=== PATIENT | female | born 1990 ===

== ENCOUNTER 2016-10-17 13:29 | Emergency (ER) | payer MEDICAID ==
[2016-10-17 13:37] VITALS: BMI 28.7
[2016-10-17 13:40] VITALS: TEMP 98.7
--- NOTE | 2016-10-17 14:28 | ED PDOC ---
Arrival/HPI - General Historian: Patient - General Chief Complaint: Abnormal Skin Integrity Time Seen by Provider: 10/17/16 13:56 - History of Present Illness Narrative History of Present Illness (Text): 10/17/16 14:24 This is a 26 year old female with no significant PMHx who presents for evaluation of bug bites. Patient states that she has been experiencing these bug bites for about 1 week now. Patient states that the bugs came from the carpets at work. Patient states that the bugs will latch onto any exposed area of skin. Patient states that the bites have been unchanged from the previous week. Patient complains of intermittent pruritis. Patient states that the lesions are primarily on her legs and feet. Patient states that she also has a lesion on her right shoulder and some on her back. Lesions are not painful. Patient denies all other acute complaints. PMD: Dr. Airam Phan ([place] [facility]) Past Medical History - Provider Review Nursing Documentation Reviewed: Yes - Infectious Disease Hx of Infectious Diseases: None - Psychiatric Hx Depression: No Hx Emotional Abuse: No Hx Physical Abuse: No Hx Substance Use: No - Anesthesia Hx Anesthesia: No Hx Anesthesia Reactions: No Hx Malignant Hyperthermia: No - Suicidal Assessment Feels Threatened In Home Enviroment: No Family/Social History - Physician Review Nursing Documentation Reviewed: Yes Family/Social History: No Known Family HX Smoking Status: Never Smoked Hx Alcohol Use: No Hx Substance Use: No Allergies/Home Meds Allergies/Adverse Reactions: Allergies No Known Allergies Allergy (Verified 11/20/11 14:31) Review of Systems - Review of Systems Constitutional: Normal. absent: Fatigue, Fevers, Night Sweats Eyes: Normal. absent: Vision Changes ENT: Normal Respiratory: Normal. absent: SOB, Cough Cardiovascular: Normal. absent: Chest Pain Gastrointestinal: Normal. absent: Abdominal Pain Genitourinary Female: Normal Musculoskeletal: Normal Skin: Rash (on right shoulder), Pruritis (intermittent), Skin Lesions (on both legs and feet as well as the back) Neurological: Normal Endocrine: Normal Hemo/Lymphatic: Normal Psychiatric: Normal Physical Exam Vital Signs Reviewed: Yes Temperature: Afebrile Blood Pressure: Normal Pulse: Regular Respiratory Rate: Normal Appearance: Positive for: Well-Appearing Pain Distress: None Mental Status: Positive for: Alert and Oriented X 3 - Systems Exam Head: Present: Atraumatic, Normocephalic Pupils: Present: PERRL Extroacular Muscles: Present: EOMI Conjunctiva: Present: Normal Mouth: Present: Moist Mucous Membranes Neck: Present: Normal Range of Motion Respiratory/Chest: Present: Clear to Auscultation, Good Air Exchange. No: Accessory Muscle Use Cardiovascular: Present: Regular Rate and Rhythm, Normal S1, S2 Abdomen: Present: Normal Bowel Sounds. No: Tenderness, Distention Upper Extremity: Present: Normal Inspection, NORMAL PULSES. No: Edema Lower Extremity: Present: Normal Inspection, NORMAL PULSES. No: Edema, CALF TENDERNESS Neurological: Present: GCS=15, CN II-XII Intact Skin: Present: Warm, Dry, Rashes (on right shoulder), Other (bug bites on both legs. no lesions on back noted despite patient's complaint) Psychiatric: Present: Alert, Oriented x 3 Medical Decision Making ED Course and Treatment: 10/17/16 14:30 Patient discharged on Hydrocortisone 1% cream. Patient instructed to follow up with her PMD. (Vern Chauhan) 10/17/16 14:39 Patient Seen With Resident: In agreement with resident note and more details are present in their notes. Patient was seen and evaluated with resident, came up with plan and treatment together. (Cornel Good DO) Disposition/Present on Arrival - Present on Arrival Any Indicators Present on Arrival: No History of DVT/PE: No History of Uncontrolled Diabetes: No Urinary Catheter: No History of Decub. Ulcer: No History Surgical Site Infection Following: None - Disposition Have Diagnosis and Disposition been Completed?: Yes Disposition Time: 14:15 Patient Plan: Discharge - Disposition Diagnosis: Bug bite Disposition: HOME/ ROUTINE Condition: GOOD Additional Instructions: Please apply the Hydrocortisone cream to the affected areas two times a day. Follow up with your primary doctor Dr. Phan. The phone number for the office has been provided. If you experience any worsening symptoms, return to the emergency room. Prescriptions: Hydrocortisone 1% Cream [Cortizone 1% Cream] 1 % TP BID #1 tube Referrals: Airam Eduardo MD [Primary Care Provider] - Follow up with primary Forms: [employer] ([place])
[2016-10-17 14:47] VITALS: BP 125/78; PULSE 80; RESP 17; O2SAT 99
== END 2016-10-17 14:47 | disposition home or self-care (01) ==
LOC: ED 13:29
DX: S80.862A Insect bite (nonvenomous), left lower leg, initial encounter (principal); S80.861A Insect bite (nonvenomous), right lower leg, initial encounter; W57.XXXA Bitten or stung by nonvenomous insect and other nonvenomous arthropods, initial encounter